=== PATIENT | female | born 1995 | race Caucasian/White ===

== ENCOUNTER → 2022-10-09 | Outpatient (CLI) | payer BC ==
[2022-10-09 16:08] LABS: BASO # 0.1 10^3/uL (0.0-0.2); BASO % 0.8 % (0.0-1.0); EOS # 0.1 10^3/uL (0.0-0.5); HEMATOCRIT 38.4 % (36.0-47.0); HEMOGLOBIN 12.7 g/dl (12.0-15.5); LYMPH # 1.8 10^3/uL (1.5-5.0); LYMPH % 30.5 % (24.0-44.0); MEAN CORPUSCULAR HEMOGLOBIN 31.7 pg (27.0-33.0); MEAN CORPUSCULAR HGB CONC 33.1 g/dl (32.0-36.5); MEAN CORPUSCULAR VOLUME 95.8 fl (80.0-96.0); MONO # 0.4 10^3/uL (0.0-0.8); MONO % 6.6 % (2.0-8.0); NEUTROPHILS # 3.6 10^3/uL (1.5-8.5); NEUTROPHILS % 60.8 % (36.0-66.0); PLATELET COUNT, AUTOMATED 388 10^3/uL (150-450); RED BLOOD COUNT 4.01 10^6/uL (4.00-5.40); WHITE BLOOD COUNT 5.9 10^3/uL (4.0-10.0)
[2022-10-09 16:33] LABS: ALBUMIN 4.1 G/DL (3.2-5.2); ALKALINE PHOSPHATASE 68 U/L (46-116); ALT/SGPT < 9 U/L (7.0-40); AST/SGOT 17 U/L (<34); BILIRUBIN,TOTAL 0.4 MG/DL (0.3-1.2); BLOOD UREA NITROGEN 12 MG/DL (9-23); CALCIUM LEVEL 9.7 MG/DL (8.5-10.1); CARBON DIOXIDE LEVEL 29 MMOL/L (20-31); CHLORIDE LEVEL 104 MMOL/L (98-107); CHOLESTEROL LEVEL 184 MG/DL (<200); CHOLESTEROL RISK RATIO 3.27 (<5); CREATININE FOR GFR 0.58 MG/DL (0.55-1.30); GLOMERULAR FILTRATION RATE > 60.0 (>60); GLUCOSE, FASTING 81 MG/DL (60-100); HDL CHOLESTEROL 56.2 MG/DL (>40); IRON (FE) 106 UG/DL (50-170); NON-HDL-C 128 MG/DL; PERCENT SATURATION 30.7 % (13.2-45.0); POTASSIUM SERUM 4.2 MMOL/L (3.5-5.1); SODIUM LEVEL 138 MMOL/L (136-145); TOTAL IRON BINDING CAPACITY 345 UG/DL (250-425); TOTAL PROTEIN 7.5 G/DL (5.7-8.2); TRIGLYCERIDES LEVEL 99 MG/DL (<150)
[2022-10-09 16:34] LABS: FOLATE 18.3 NG/ML (>5.4)
[2022-10-09 16:35] LABS: FERRITIN 10.4 NG/ML (7.3-270.7); FREE T4 1.02 NG/DL (0.89-1.76); VITAMIN B12 LEVEL 426 PG/ML (211-911)
[2022-10-09 16:36] LABS: THYROID STIMULATING HORMONE 1.373 uIU/ML (0.55-4.78)
[2022-10-09 17:51] LABS: HEMOGLOBIN A1c 4.7 % (4.0-6.0)
== END ==
LOC: M LAB 15:37
PROVIDERS: ATTEND Nurse Practitioner Adult Health
DX: Z13.220 Encounter for screening for lipoid disorders (principal); Z13.29 Encounter for screening for other suspected endocrine disorder; R55 Syncope and collapse

== ENCOUNTER → 2022-10-15 | Outpatient (CLI) | payer BC ==
[~2022-10-15] MED LIST: ISOVUE-370 76% 100ML VIAL As Ordered ONE
== END ==
LOC: M RAD 14:57 → EDUNIT# 15:30
PROVIDERS: ATTEND Nurse Practitioner Adult Health
DX: R01.1 Cardiac murmur, unspecified (principal); I77.1 Stricture of artery

== ENCOUNTER → 2022-12-12 | Outpatient (REF) | payer BC | LOC: M SFHCWAGY 12:55 | PROVIDERS: ATTEND Nurse Practitioner Family | DX: Z12.4 Encounter for screening for malignant neoplasm of cervix (principal) ==

== ENCOUNTER → 2022-12-17 | Outpatient (CLI) | payer BC ==
[~2022-12-17] MED LIST changes: -ISOVUE-370 76% 100ML VIAL As Ordered ONE; +PROHANCE 279.3MG/ML 15ML VIAL As Ordered ONE; +PROHANCE 279.3MG/ML 5ML VIAL As Ordered ONE
== END ==
LOC: M RAD 14:45
PROVIDERS: ATTEND Surgery Vascular Surgery
DX: I77.1 Stricture of artery (principal); R55 Syncope and collapse
CPT/HCPCS: 70544; 70549; A9576

== ENCOUNTER → 2023-01-08 | Outpatient (CLI) | payer BC | LOC: M WHC 10:43 | PROVIDERS: ATTEND Nurse Practitioner Family | DX: R10.2 Pelvic and perineal pain (principal) ==

== ENCOUNTER → 2024-08-24 | Outpatient (CLI) | payer BC ==
[2024-08-24 10:21] LABS: HCG, SERUM QUALITATIVE POSITIVE (NEGATIVE)
[2024-08-24 22:07] LABS: HCG, SERUM QUANTITATIVE 619.1 MIU/ML (<4.2)
== END ==
LOC: M LAB 08:29
PROVIDERS: ATTEND Obstetrics & Gynecology
DX: Z32.00 Encounter for pregnancy test, result unknown (principal)

== ENCOUNTER → 2024-10-19 | Outpatient (CLI) | payer BC, OTHER ==
[2024-10-19 17:22] LABS: HEMATOCRIT 34.5 % (36.0-47.0); HEMOGLOBIN 11.9 g/dl (12.0-15.5); MEAN CORPUSCULAR HEMOGLOBIN 31.6 pg (27.0-33.0); MEAN CORPUSCULAR HGB CONC 34.5 g/dl (32.0-36.5); MEAN CORPUSCULAR VOLUME 91.5 fl (80.0-96.0); PLATELET COUNT, AUTOMATED 354 10^3/uL (150-450); RED BLOOD COUNT 3.77 10^6/uL (4.00-5.40); WHITE BLOOD COUNT 12.1 10^3/uL (4.0-10.0)
[2024-10-19 18:29] LABS: HIV 1&2 SCREEN NEGATIVE (NEGATIVE)
[2024-10-19 18:37] LABS: HEPATITIS C VIRUS ABY INDEX < 0.02 INDEX (<0.8)
[2024-10-19 19:05] LABS: GC DNA AMPLIFICATION NEGATIVE (NEGATIVE)
== END ==
LOC: M PLALAB 15:03
PROVIDERS: ATTEND Specialist
DX: Z34.81 Encounter for supervision of other normal pregnancy, first trimester (principal)

== ENCOUNTER → 2024-12-31 | Outpatient (CLI) | payer BC, OTHER | LOC: M CARPUL 08:28 | PROVIDERS: ATTEND Physician Assistant | DX: R07.9 Chest pain, unspecified (principal) ==

== ENCOUNTER → 2025-02-15 | Outpatient (CLI) | payer OTHER | LOC: M EKG 10:53 | PROVIDERS: ATTEND Physician Assistant | DX: R55 Syncope and collapse (principal) ==

== ENCOUNTER → 2025-02-23 | Outpatient (CLI) | payer OTHER ==
[2025-02-23 13:56] LABS: HEMOGLOBIN 8.5 g/dl (12.0-15.5); MEAN CORPUSCULAR HEMOGLOBIN 28.8 pg (27.0-33.0); MEAN CORPUSCULAR HGB CONC 32.7 g/dl (32.0-36.5); MEAN CORPUSCULAR VOLUME 88.1 fl (80.0-96.0); PLATELET COUNT, AUTOMATED 349 10^3/uL (150-450); RED BLOOD COUNT 2.95 10^6/uL (4.00-5.40); WHITE BLOOD COUNT 9.7 10^3/uL (4.0-10.0)
[2025-02-23 14:16] LABS: GLUCOSE CHALLENGE TEST 1 HOUR 117 MG/DL (LESS THAN 140)
[2025-02-23 14:53] LABS: HIV 1&2 SCREEN NEGATIVE (NEGATIVE)
[2025-02-23 15:00] LABS: HEPATITIS C VIRUS ABY INDEX 0.07 INDEX (<0.8)
[2025-02-23 15:01] LABS: Trichomonas vaginalis (AMP) NOT DETECTED (NEGATIVE)
[2025-02-23 15:24] LABS: GC DNA AMPLIFICATION NEGATIVE (NEGATIVE)
== END ==
LOC: M PLALAB 08:36
PROVIDERS: ATTEND Advanced Practice Midwife
DX: O34.211 Maternal care for low transverse scar from previous cesarean delivery (principal)

== ENCOUNTER 2025-04-28 05:47 | Inpatient (IN) | payer OTHER ==
[2025-04-28] VITALS (9 sets, daily range): BP systolic 84–106; BP diastolic 50–64; TEMP 97.6; O2SAT 97–100
[~2025-04-28] VITALS: Ht 144.8 cm; Wt 63.2 kg
[~2025-04-28 05:47] MED LIST changes: +FERR325T14 PO; +PRENTAB9 PO; -PROHANCE 279.3MG/ML 15ML VIAL As Ordered ONE; -PROHANCE 279.3MG/ML 5ML VIAL As Ordered ONE
[2025-04-28] MEDS ORDERED: LR 1,000 ML IV SCH (06:05)
[2025-04-28] MEDS: BICITRA 30 ML SOLN UDC PO ONE (06:05)
[2025-04-28 06:43] LABS: PLATELET COUNT, AUTOMATED 241 10^3/uL (150-450)
[2025-04-28] MEDS: LACTATED RINGER'S 1000 ML IV STA (07:17)
[2025-04-28] MEDS: ceFAZolin SODIUM 2 GM in DEXTROSE 5% (D5W) ADV/MINI-BAG 50 ML IV ONE (07:45)
[2025-04-28] MEDS ORDERED: OXYTOCIN 30UNITS IN 0.9% NaCl 500ML IV BAG As Ordered ONE (08:18)
[2025-04-28] MEDS ORDERED: ONDANSETRON 4MG 2ML VIAL As Ordered ONE (08:18)
[2025-04-28] MEDS ORDERED: MORPHINE PRES-FREE INJ 10 MG/10 ML VIAL As Ordered ONE (08:18)
[2025-04-28] MEDS ORDERED: PHENYLephrine 500MCG 5ML (100MCG/ML) SYRINGE As Ordered ONE (08:26)
[2025-04-28] MEDS ORDERED: KETOROLAC 30 MG/ML 1 ML VIAL As Ordered ONE (08:35)
[2025-04-28 08:37] LABS: CORD GAS ABE A -1.9; CORD GAS HCO3 A 24.8 MMOL/L; CORD GAS O2 SAT A 26.2 %; CORD GAS PCO2 A 49.9 mmHg; CORD GAS PH A 7.314 UNITS; CORD GAS PO2 A 15.2 mmHg; CORD GAS SBC A 21.2 MMOL/L; CORD GAS TCO2 A 26.3 MMOL/L
[2025-04-28] MEDS ORDERED: ONDANSETRON 4MG 2ML VIAL IV PRN (08:45)
[2025-04-28] MEDS ORDERED: ACETAMINOPHEN *IV* 1,000 MG in IV 1 EA IV ONE (08:45)
[2025-04-28] MEDS ORDERED: HYDROMORPHONE HCL 0.5 MG/0.5 ML SYRINGE IV PRN (08:45)
[2025-04-28] MEDS: LR 1,000 ML IV SCH (08:55)
[2025-04-28] MEDS ORDERED: PERCOCET 5MG/325MG TAB PO PRN (08:55)
[2025-04-28] MEDS ORDERED: IBUP80TA PO (08:59)
[2025-04-28] MEDS ORDERED: COLA100C5 PO (08:59)
[2025-04-28] MEDS ORDERED: OXYC1TAB23 PO (08:59)
[2025-04-28] MEDS: PRENATAL VITAMINS CHEWABLE TABLET PO SCH (09:00)
[2025-04-28] MEDS: RHOGAM 300MCG (1500IU) INJ IM SCH (10:45)
[2025-04-28 13:51] LABS: HIV 1&2 SCREEN NEGATIVE (NEGATIVE)
[2025-04-28 13:59] LABS: HEPATITIS C VIRUS ABY INDEX 0.03 INDEX (<0.8)
[2025-04-28] MEDS: KETOROLAC 30 MG/ML 1 ML VIAL IV SCH (15:09)
[2025-04-28] MEDS: ONDANSETRON 4MG 2ML VIAL IV PRN (15:35)
[2025-04-28] MEDS: LR 1,000 ML IV ONE (18:34)
[2025-04-29 02:00] VITALS: BP 92/47; O2SAT 98
[2025-04-29 05:47] VITALS: BP 103/53; O2SAT 96
[2025-04-29 07:28] LABS: PLATELET COUNT, AUTOMATED 190 10^3/uL (150-450)
[2025-04-29] MEDS: SIMETHICONE 80MG CHEW TAB PO PRN (08:34)
[2025-04-29] MEDS: DOCUSATE SODIUM 100 MG CAPSULE PO PRN (08:34)
[2025-04-29 10:15] VITALS: BP 98/55; O2SAT 98
[2025-04-29] MEDS: IBUPROFEN 800 MG TAB PO SCH (10:43)
[2025-04-29 14:00] VITALS: BP 102/52; O2SAT 98
[2025-04-29] MEDS: PERCOCET 5MG/325MG TAB PO PRN (17:17)
[2025-04-29 18:00] VITALS: BP 98/55; O2SAT 99
[2025-04-29 22:31] VITALS: BP 97/55; O2SAT 97
[2025-04-30 02:13] VITALS: BP 101/59; O2SAT 98
[2025-04-30 06:22] VITALS: BP 109/58; O2SAT 99
[2025-04-30] MEDS: MEASLES,MUMPS,RUBELLA VACCINE INJ (MMR-II) SC.IMMUN ONE (08:19)
== END 2025-04-30 15:30 | disposition home or self-care (01) | DRG 773 ==
LOC: M LDI 05:47 → M OBS 11:03
PROVIDERS: ADMIT Specialist; ATTEND Specialist
PROC: 10D00Z1 Extraction of Products of Conception, Low, Open Approach (ICD-10-PCS; principal; 2025-04-28 07:30)
DX: O34.211 Maternal care for low transverse scar from previous cesarean delivery (principal); Z3A.39 39 weeks gestation of pregnancy; Z37.0 Single live birth

== ENCOUNTER → 2025-10-04 | Outpatient (CLI) | payer OTHER ==
[~2025-10-04] MED LIST changes: +COLA100C5 PO; +IBUP80TA PO; +OXYC1TAB23 PO
[2025-10-04 13:27] LABS: PLATELET COUNT, AUTOMATED 380 10^3/uL (150-450)
[2025-10-04 14:17] LABS: HIV 1&2 SCREEN NEGATIVE (NEGATIVE)
[2025-10-04 14:25] LABS: HEPATITIS C VIRUS ABY INDEX < 0.02 INDEX (<0.8)
[2025-10-04 14:37] LABS: Trichomonas vaginalis (AMP) NOT DETECTED (NEGATIVE)
[2025-10-04 15:01] LABS: GC DNA AMPLIFICATION NEGATIVE (NEGATIVE)
== END ==
LOC: M PLALAB 10:14
PROVIDERS: ATTEND Student in an Organized Health Care Education/Training Program
DX: Z34.81 Encounter for supervision of other normal pregnancy, first trimester (principal)